=== PATIENT | male | born 1960 | race African-American/Black ===

== ENCOUNTER 2021-11-09 10:14 | Outpatient (CLI) | payer OTHER | END 2021-11-09 10:15 | disposition home or self-care (01) | LOC: CSHMRI 10:14 | PROVIDERS: ATTEND Anesthesiology Pain Medicine | DX: M54.16 Radiculopathy, lumbar region (principal); M47.816 Spondylosis without myelopathy or radiculopathy, lumbar region; Q76.49 Other congenital malformations of spine, not associated with scoliosis | CPT/HCPCS: 72148 ==